=== PATIENT | female | born 1965 | race American Indian/Alaskan Native ===

== ENCOUNTER 2016-10-14 06:48 | Day surgery (SDC) | payer OTHER ==
[2016-10-14] MEDS ORDERED: NACL 0.9% 500 ML 500 ML IV SCH (08:00)
[2016-10-14] MEDS ORDERED: NITROSTAT SL ONE (08:18)
--- NOTE | 2016-10-14 09:07 | Short Stay Summary ---
Short Stay Documentation Date of service: 10/14/16 - History H&P: obtained from office - Allergies and Medications Current Medications: Allergies No Known Allergies Allergy (Unverified 10/14/16 06:49) Home Medications Medication Instructions Recorded Confirmed Last Taken Type Atenolol [Tenormin] 50 mg PO DAILY 10/14/16 10/14/16 10/13/16 History 50mg Levothyroxine [Synthroid] 75 mcg PO QAM 10/14/16 10/14/16 10/13/16 History 75mcg Sertraline HCl [Sertraline HCl] 50 mg PO DAILY 10/14/16 10/14/16 10/13/16 History 50mg Vitamin D2 50,000 units PO DAILY 10/14/16 10/14/16 10/13/16 History 20607 methylPREDNISolone 1 tab PO DAILY 10/14/16 10/14/16 10/13/16 History [Methylprednisolone] 2 tabs Active Medications Sodium Chloride (Nacl 0.9% 500 Ml) 500 mls @ 50 mls/hr IV DIRECT HOPE Last Admin: 10/14/16 08:24 Dose: 50 mls/hr - Physical exam General appearance: no acute distress Integumentary: no rash HEENT: Atraumatic Lungs: Clear to auscultation Breasts: deferred Heart: Regular rate Gastrointestinal: normal Female Genitourinary: deferred Rectal Exam: deferred Extremities: no ischemia Neurological: Normal gait - Brief post op/procedure progress note Date of procedure: 10/14/16 Pre-op diagnosis: Dizziness Post-op diagnosis: same Procedure: TTT Anesthesia: none Findings: Neg TTT Surgeon: XUAN MOE Estimated blood loss: none Pathology: none Condition: stable - Hospital course Hospital course: Uneventful - Disposition Condition at discharge: Good Disposition: DISCHARGED TO HOME OR SELFCARE Short Stay Discharge Plan Activity: advance as tolerated Weight Bearing Status: Weight Bear as Tolerated Diet: regular
[2016-10-14 09:22] VITALS: BP 111/63
--- NOTE | 2016-10-14 09:47 | Procedure Note ---
ORDERING PHYSICIAN: Dr. Prince Rhodes. INDICATION: Dizziness and palpitations. DESCRIPTION OF PROCEDURE: After obtaining written consent, the patient was brought to the slab off mill tender area. The patient was secured to the tilt table test. The patient's supine blood pressure was 121/74 with a heart rate of 54 beats per minute. The patient was tilted to 85 degrees from horizontal. After tilting, her blood pressure was 131/84 with a heart rate of 69 beats per minute. The patient was kept in this position for 10 minutes. Her blood pressure at that time was 127/84 with a heart rate of 66 beats per minute. Subsequently, the patient was given 0.4 mg of sublingual nitroglycerin and monitored for another 10 minutes in the upright position. Her maximum recorded heart rate was 149 beats per minute and the lowest recorded blood pressure was 103/63. The patient did describe tingling in her tongue, dizziness, and feeling fluttering in her chest. However, the patient did not lose consciousness. There was no evidence of bradyarrhythmias. The heart rate of 149 corresponded with sinus tachycardia. The patient was therefore tilted back to horizontal and her blood pressure at that time was 124/64 with a heart rate of 92 sinus rhythm. IMPRESSION: Negative tilt table test with no evidence of a cardioinhibitory or a vasodepressor response. RECOMMENDATION: Continue current management and follow up with referring palm and back forger. JOB# [id number] ALLISON/MOOSE
== END 2016-10-14 09:45 | disposition home or self-care (01) ==
LOC: OPU 06:48
PROVIDERS: ATTEND Internal Medicine
DX: R42 Dizziness and giddiness (principal); R00.2 Palpitations; I10 Essential (primary) hypertension; D64.9 Anemia, unspecified; E03.9 Hypothyroidism, unspecified; E66.9 Obesity, unspecified; Z68.32 Body mass index [BMI] 32.0-32.9, adult; Z86.711 Personal history of pulmonary embolism; Z72.89 Other problems related to lifestyle; Z87.891 Personal history of nicotine dependence; Z82.49 Family history of ischemic heart disease and other diseases of the circulatory system
CPT/HCPCS: 93660; J7040